=== PATIENT | male | born 1955 | race Caucasian/White ===

== ENCOUNTER 2022-09-15 06:15 | Day surgery (SDC) | payer MEDICARE, OTHER ==
[2022-09-14 11:09] VITALS: BMI 36.9
[2022-09-15] MEDS ORDERED: Phenylephrine 10 MG/ML VIAL ONE (06:51)
[2022-09-15] MEDS ORDERED: PROPOFOL 40 ML ONE ×2 (06:51)
[2022-09-15] MEDS ORDERED: Lidocaine 1% PF 5 ML VIAL ONE (07:26)
== END 2022-09-15 11:00 | disposition home or self-care (01) ==
LOC: SDC 06:15
PROVIDERS: ATTEND Internal Medicine Cardiovascular Disease
PROC: 5A2204Z Restoration of Cardiac Rhythm, Single (ICD-10-PCS; principal; 2022-09-15)
DX: I48.19 Other persistent atrial fibrillation (principal); I50.22 Chronic systolic (congestive) heart failure; I25.10 Atherosclerotic heart disease of native coronary artery without angina pectoris; Z87.891 Personal history of nicotine dependence; Z79.01 Long term (current) use of anticoagulants; Z79.82 Long term (current) use of aspirin; Z79.899 Other long term (current) drug therapy; Z95.5 Presence of coronary angioplasty implant and graft
CPT/HCPCS: 92960; 93005; 93010; J2370; J2704

== ENCOUNTER 2023-08-20 06:18 | Day surgery (SDC) | payer MEDICARE ==
[2023-08-19 15:08] VITALS: BMI 40.0
[2023-08-20] MEDS ORDERED: Protamine Sulfate 50 MG/5 ML VIAL ONE (06:54)
[2023-08-20] MEDS ORDERED: Heparin 10,000 UNITS/ 10 ML VIAL ONE (06:54)
[2023-08-20] MEDS ORDERED: Dexmedetomidine 200 MCG/2 ML VIAL ONE (06:54)
[2023-08-20] MEDS ORDERED: Heparin 25,000 units/D5W 500 ML ONE (06:55)
[2023-08-20] MEDS ORDERED: fentaNYL 50 mcg/mL 1 mL Vial ONE ×2 (07:03→08:56)
[2023-08-20] MEDS ORDERED: PROPOFOL 20 ML ONE (07:03)
[2023-08-20] MEDS ORDERED: Vecuronium 10 MG VIAL ONE (07:45)
[2023-08-20] MEDS ORDERED: NEOSTIGMINE 3 MG/3 ML SYR 3 MG/3 ML SYRINGE ONE (07:45)
[2023-08-20] MEDS ORDERED: Glycopyrrolate 0.2 MG/ML 5 ML SYRINGE ONE (07:45)
[2023-08-20] MEDS ORDERED: ePHEDrine Sulfate 50 MG/10 ML VIAL ONE (07:45)
[2023-08-20] MEDS ORDERED: Dexamethasone 4 mg/ml Vial ONE (07:55)
[2023-08-20] MEDS ORDERED: Ondansetron PF 4 MG/2 ML Vial ONE (07:56)
[2023-08-20] MEDS ORDERED: Ondansetron HCl/PF 4 MG/2 ML Vial IVP PRN (08:51)
[2023-08-20] MEDS ORDERED: Promethazine HCl 25 MG/ML VIAL IM PRN (08:51)
[2023-08-20] MEDS ORDERED: HYDROmorphone 2 MG/ML VIAL SLOW IVP PRN (08:51)
== END 2023-08-20 12:54 | disposition home or self-care (01) ==
LOC: SDC 06:18
PROVIDERS: ATTEND Internal Medicine Cardiovascular Disease
PROC: 02583ZZ Destruction of Conduction Mechanism, Percutaneous Approach (ICD-10-PCS; principal; 2023-08-20)
PROC: 02K83ZZ Map Conduction Mechanism, Percutaneous Approach (ICD-10-PCS; 2023-08-20)
PROC: B246ZZ4 Ultrasonography of Right and Left Heart, Transesophageal (ICD-10-PCS; 2023-08-20)
DX: I48.0 Paroxysmal atrial fibrillation (principal); Z79.01 Long term (current) use of anticoagulants
CPT/HCPCS: 85347 ×2; 93005; 93312; 93656; C1732; C1759; C1760; C1894 ×5; C2630; J3010; J1100; J1644; J2405; J2704; J2720